=== PATIENT | female | born 1975 | race African-American/Black ===

== ENCOUNTER 2018-06-18 23:00 | Inpatient (IN) | payer MEDICAID ==
[~2018-06-18] VITALS: Ht 152.4 cm; Wt 112.5 kg
[~2018-06-18 23:00] MED LIST: FERR-71 MT; FURO-151 MT; HYDR25TA MT; LISI40TA4 MT
[2018-06-19] VITALS (15 sets, daily range): BP systolic 106–145; BP diastolic 67–97
[2018-06-19 00:41] LABS: CHLORIDE 106 mEq/L (98-107)
[2018-06-19 00:45] LABS: INR 1.1; PROTHROMBIN TIME 11.2 sec (9.1-11.1)
[2018-06-19 02:16] LABS: MEAN CORPUSCULAR HEMOGLOBIN 16.9 pg (28.0-32.0); MEAN CORPUSCULAR VOLUME 58.5 fL (81.0-99.0); MEAN PLATELET VOLUME 8.8 fl (7.4-10.4); PLATELET 213 x1000/uL (130-400); RED BLOOD CELL COUNT 2.72 mill/uL (4.2-5.4); RED CELL DISTRIBUTION WIDTH 20.2 % (11.6-14.6)
[2018-06-19 02:18] LABS: HEMATOCRIT. 15.9 % (36.0-48.0); HEMOGLOBIN. 4.6 g/dL (12.0-16.0)
[2018-06-19 05:29] LABS: PLATELET ESTIMATE NORMAL
[2018-06-19] MEDS ORDERED: DIPHENHYDRAMINE 50MG/ML VIAL IV PRN (08:45)
[2018-06-19] MEDS ORDERED: HYDROMORPHONE HCL/PF 2MG/ML CPJ IV PRN (08:45)
[2018-06-19] MEDS ORDERED: MAGNESIUM/ALUMINUM HYDROXIDE/SIMETHICONE 30ML UDC PO PRN (08:45)
[2018-06-19] MEDS ORDERED: ONDANSETRON HCL 4MG/2ML INJ IV PRN (08:45)
[2018-06-19] MEDS ORDERED: HYDRALAZINE 20MG/ML VIAL IV PRN (08:45)
[2018-06-19] MEDS ORDERED: LORAZEPAM 2MG/ML CPJ IV PRN (08:45)
[2018-06-19] MEDS ORDERED: DOCUSATE SODIUM 100MG CAPSULE PO PRN (08:45)
[2018-06-19] MEDS ORDERED: ACETAMINOPHEN 325MG TABLET PO PRN (08:45)
[2018-06-19] MEDS ORDERED: GUAIFENESIN 200MG/10ML SUGAR FREE UDC PO PRN (08:45)
[2018-06-19] MEDS ORDERED: IPRATROPIUM/ALBUTEROL 0.5-3(2.5)MG/3ML NEB INH PRN (08:45)
[2018-06-19] MEDS ORDERED: HYDROCODONE/ACETAMINOPHEN 10/325MG TABLET PO PRN (08:45)
[2018-06-19] MEDS ORDERED: CLONIDINE 0.1MG TABLET PO PRN (08:45)
[2018-06-19] MEDS ORDERED: TRAMADOL 50MG TABLET PO PRN (11:45)
[2018-06-19] MEDS ORDERED: FUROSEMIDE 40MG/4ML VIAL IVP NR (11:45)
[2018-06-19] MEDS: SODIUM CHLORIDE 0.9% INJ 3ML FLUSH IVF SCH ×2 (14:53→21:34)
[2018-06-19] MEDS: IPRATROPIUM/ALBUTEROL 0.5-3(2.5)MG/3ML NEB HHN SCH ×2 (15:58→21:13)
[2018-06-19 16:05] LABS: HEMATOCRIT. 21.7 % (36.0-48.0); MEAN CORPUSCULAR VOLUME 64.5 fL (81.0-99.0); MEAN PLATELET VOLUME 9.6 fl (7.4-10.4); PLATELET 206 x1000/uL (130-400); RED BLOOD CELL COUNT 3.37 mill/uL (4.2-5.4); RED CELL DISTRIBUTION WIDTH 25.1 % (11.6-14.6)
[2018-06-19 16:17] LABS: CREATINE KINASE 58 IU/L (26-192)
[2018-06-19 16:19] LABS: CREATINE KINASE MB FRACTION < 1.0 ng/mL (0.5-3.6); HEMOGLOBIN. 6.4 g/dL (12.0-16.0)
[2018-06-19 20:25] LABS: PLATELET ESTIMATE NORMAL
[2018-06-19] MEDS: BUDESONIDE 0.5MG/2ML NEB HHN SCH (21:14)
[2018-06-20] VITALS (12 sets, daily range): BP systolic 122–153; BP diastolic 53–90
[2018-06-20 00:34] LABS: CREATINE KINASE 56 IU/L (26-192)
[2018-06-20 00:35] LABS: CREATINE KINASE MB FRACTION < 1.0 ng/mL (0.5-3.6)
[2018-06-20] MEDS: IPRATROPIUM/ALBUTEROL 0.5-3(2.5)MG/3ML NEB HHN SCH ×2 (01:14→07:33)
[2018-06-20] MEDS: SODIUM CHLORIDE 0.9% INJ 3ML FLUSH IVF SCH (05:41)
[2018-06-20] MEDS: BUDESONIDE 0.5MG/2ML NEB HHN SCH (07:33)
[2018-06-20 08:33] LABS: HEMATOCRIT. 24.3 % (36.0-48.0); HEMOGLOBIN. 7.6 g/dL (12.0-16.0); MEAN CORPUSCULAR HEMOGLOBIN 20.2 pg (28.0-32.0); MEAN PLATELET VOLUME 9.5 fl (7.4-10.4); PLATELET 192 x1000/uL (130-400); RED BLOOD CELL COUNT 3.74 mill/uL (4.2-5.4); RED CELL DISTRIBUTION WIDTH 25.6 % (11.6-14.6)
[2018-06-20 08:36] LABS: CHLORIDE 107 mEq/L (98-107)
[2018-06-20 08:46] LABS: LDL CHOLESTEROL 69 mg/dL (5-100)
[2018-06-20 08:47] LABS: HDL CHOLESTEROL 53 mg/dL (40-59); T4 FREE 1.01 ng/dL (0.76-1.46)
[2018-06-20] MEDS ORDERED: FUROSEMIDE 40MG TABLET PO SCH (09:00)
[2018-06-21 10:50] LABS: PLATELET ESTIMATE NORMAL
== END 2018-06-20 17:00 | disposition home or self-care (01) | DRG 532 ==
LOC: ER 23:00 → 5EST 06-19 02:22 → EDBEDREQTM 06-19 02:25 → EDBEDREQ 06-19 02:25 → EDBEDREQSVC 06-19 02:25 → ENRESERV 06-19 07:27
PROVIDERS: ADMIT Internal Medicine; ATTEND Internal Medicine
PROC: 30233N1 Transfusion of Nonautologous Red Blood Cells into Peripheral Vein, Percutaneous Approach (ICD-10-PCS; principal; 2018-06-19)
DX: D25.9 Leiomyoma of uterus, unspecified (principal); J96.00 Acute respiratory failure, unspecified whether with hypoxia or hypercapnia; I11.0 Hypertensive heart disease with heart failure; I50.9 Heart failure, unspecified; D50.0 Iron deficiency anemia secondary to blood loss (chronic); E66.9 Obesity, unspecified; F41.9 Anxiety disorder, unspecified; G47.33 Obstructive sleep apnea (adult) (pediatric); I34.0 Nonrheumatic mitral (valve) insufficiency; N92.1 Excessive and frequent menstruation with irregular cycle; J44.9 Chronic obstructive pulmonary disease, unspecified; Z77.22 Contact with and (suspected) exposure to environmental tobacco smoke (acute) (chronic); M06.9 Rheumatoid arthritis, unspecified; Z99.81 Dependence on supplemental oxygen; Z68.42 Body mass index [BMI] 45.0-49.9, adult; Z91.018 Allergy to other foods
CPT/HCPCS: 36415; 36430; 71045; 80061; 82550; 82553; 83880; 84439; 84443; 84484; 86850; 86900; 86920; 93005; 93306; 93970; 94640; 96374; 96375; 99291; J1940; J7050; J7620; J7626; P9016

== ENCOUNTER 2019-03-10 19:57 | Inpatient (IN) | payer MEDICAID ==
[~2019-03-10] VITALS: Ht 165.1 cm; Wt 102.1 kg
[2019-03-10] MEDS ORDERED: ONDANSETRON HCL 4MG/2ML INJ IV STA (21:26)
[2019-03-10] MEDS ORDERED: MAGNESIUM/ALUMINUM HYDROXIDE/SIMETHICONE 30ML UDC PO ONE (21:30)
[2019-03-10] MEDS ORDERED: VISCOUS LIDOCAINE 2% 15 ML UDC PO ONE (21:30)
[2019-03-10 21:47] LABS: MEAN CORPUSCULAR HEMOGLOBIN 16.3 pg (28.0-32.0); MEAN CORPUSCULAR VOLUME 56.5 fL (81.0-99.0); MEAN PLATELET VOLUME 9.2 fl (7.4-10.4); PLATELET 276 x1000/uL (130-400); RED BLOOD CELL COUNT 2.18 mill/uL (4.2-5.4); RED CELL DISTRIBUTION WIDTH 22.4 % (11.6-14.6)
[2019-03-10 21:50] LABS: CHLORIDE 106 mEq/L (98-107)
[2019-03-10 21:55] LABS: HEMATOCRIT. 12.3 % (36.0-48.0); HEMOGLOBIN. 3.5 g/dL (12.0-16.0)
[2019-03-10 22:20] LABS: PLATELET ESTIMATE NORMAL
[2019-03-10] MEDS ORDERED: HYDROCODONE/ACETAMINOPHEN 5/325MG TABLET PO PRN (23:30)
[2019-03-10] MEDS ORDERED: CLONIDINE 0.1MG TABLET PO PRN (23:30)
[2019-03-10] MEDS ORDERED: ONDANSETRON HCL 4MG/2ML INJ IV PRN (23:30)
[2019-03-10] MEDS ORDERED: MAGNESIUM/ALUMINUM HYDROXIDE/SIMETHICONE 30ML UDC PO PRN (23:30)
[2019-03-10] MEDS ORDERED: IPRATROPIUM/ALBUTEROL 0.5-3(2.5)MG/3ML NEB NEB PRN (23:30)
[2019-03-10] MEDS ORDERED: DOCUSATE SODIUM 100MG CAPSULE PO PRN (23:30)
[2019-03-11] VITALS (14 sets, daily range): BP systolic 116–139; BP diastolic 70–92
[2019-03-11] MEDS: ACETAMINOPHEN 325MG TABLET PO PRN (05:05)
[2019-03-11 05:16] LABS: BASOPHILS % 1.3 % (0.0-2.0); EOSINOPHILS % 1.3 % (0.0-5.0); LYMPHOCYTES % 22.7 % (20.0-50.0); MEAN CORPUSCULAR HEMOGLOBIN 20.1 pg (28.0-32.0); MEAN CORPUSCULAR VOLUME 65.5 fL (81.0-99.0); MEAN PLATELET VOLUME 8.9 fl (7.4-10.4); NEUTROPHILS % 68.7 % (40.0-76.0); PLATELET 277 x1000/uL (130-400); RED BLOOD CELL COUNT 2.96 mill/uL (4.2-5.4); RED CELL DISTRIBUTION WIDTH 33.2 % (11.6-14.6)
[2019-03-11 05:22] LABS: CHLORIDE 107 mEq/L (98-107)
[2019-03-11 05:26] LABS: HEMATOCRIT. 19.4 % (36.0-48.0)
[2019-03-11 05:29] LABS: LDL CHOLESTEROL 66 mg/dL (5-100)
[2019-03-11 05:30] LABS: CREATINE KINASE 49 IU/L (26-192); HDL CHOLESTEROL 44 mg/dL (40-59)
[2019-03-11 05:33] LABS: CREATINE KINASE MB FRACTION < 1.0 ng/mL (0.5-3.6)
[2019-03-11] MEDS: FERROUS SULFATE 325MG TABLET PO SCH ×3 (09:00→17:00)
[2019-03-11 16:13] LABS: CREATINE KINASE MB FRACTION < 1.0 ng/mL (0.5-3.6)
[2019-03-11 16:19] LABS: CREATINE KINASE 38 IU/L (26-192)
[2019-03-11] MEDS ORDERED: IPRATROPIUM/ALBUTEROL 0.5-3(2.5)MG/3ML NEB HHN PRN (16:45)
[2019-03-12] VITALS (19 sets, daily range): BP systolic 121–155; BP diastolic 58–102
[2019-03-12] MEDS ORDERED: FUROSEMIDE 40MG TABLET PO SCH (09:00)
[2019-03-12] MEDS ORDERED: INFLUENZA VIRUS VACCINE(AFLURIA) 0.5ML SYR IM ONE (09:00)
[2019-03-12] MEDS: FERROUS SULFATE 325MG TABLET PO SCH ×3 (09:00→17:00)
[2019-03-12 10:02] LABS: CHLORIDE 107 mEq/L (98-107)
[2019-03-12 10:07] LABS: BASOPHILS % 1.6 % (0.0-2.0); EOSINOPHILS % 2.8 % (0.0-5.0); HEMATOCRIT. 22.1 % (36.0-48.0); LYMPHOCYTES % 7.3 % (20.0-50.0); MEAN CORPUSCULAR HEMOGLOBIN 21.8 pg (28.0-32.0); MEAN CORPUSCULAR VOLUME 69.5 fL (81.0-99.0); MEAN PLATELET VOLUME 9.1 fl (7.4-10.4); MONOCYTES % 5.5 % (2.0-8.0); NEUTROPHILS % 82.8 % (40.0-76.0); PLATELET 206 x1000/uL (130-400); RED BLOOD CELL COUNT 3.17 mill/uL (4.2-5.4); RED CELL DISTRIBUTION WIDTH 33.3 % (11.6-14.6)
[2019-03-12 10:12] LABS: HEMOGLOBIN. 6.9 g/dL (12.0-16.0)
[2019-03-12 20:22] LABS: HEMATOCRIT. 27.6 % (36.0-48.0); HEMOGLOBIN. 8.7 g/dL (12.0-16.0); LYMPHOCYTES % 12.2 % (20.0-50.0); MEAN CORPUSCULAR HEMOGLOBIN 22.6 pg (28.0-32.0); MEAN CORPUSCULAR VOLUME 71.8 fL (81.0-99.0); MEAN PLATELET VOLUME 9.4 fl (7.4-10.4); MONOCYTES % 4.5 % (2.0-8.0); NEUTROPHILS % 79.3 % (40.0-76.0); PLATELET 243 x1000/uL (130-400); RED BLOOD CELL COUNT 3.84 mill/uL (4.2-5.4); RED CELL DISTRIBUTION WIDTH 33.3 % (11.6-14.6)
[2019-03-12] MEDS: ACETAMINOPHEN 325MG TABLET PO PRN (20:38)
== END 2019-03-12 21:17 | disposition home or self-care (01) | DRG 532 ==
LOC: ER 19:57 → 5EST 21:59 → EDBEDREQ 22:02 → EDBEDREQTM 22:02 → EDBEDREQSVC 22:02 → ENRESERV 03-11 11:11 → 5EST 03-11 14:36
PROVIDERS: ADMIT Internal Medicine; ATTEND Internal Medicine
PROC: 30233N1 Transfusion of Nonautologous Red Blood Cells into Peripheral Vein, Percutaneous Approach (ICD-10-PCS; principal; 2019-03-10)
DX: D25.9 Leiomyoma of uterus, unspecified (principal); I11.0 Hypertensive heart disease with heart failure; I50.9 Heart failure, unspecified; D50.0 Iron deficiency anemia secondary to blood loss (chronic); N92.0 Excessive and frequent menstruation with regular cycle; J44.9 Chronic obstructive pulmonary disease, unspecified; G47.30 Sleep apnea, unspecified; M19.90 Unspecified osteoarthritis, unspecified site; M25.531 Pain in right wrist; W18.39XA Other fall on same level, initial encounter; Y93.89 Activity, other specified; Y92.098 Other place in other non-institutional residence as the place of occurrence of the external cause; Z79.899 Other long term (current) drug therapy; Y99.8 Other external cause status; Z91.018 Allergy to other foods
CPT/HCPCS: 36415; 71045; 73110; 80048; 80061; 82550; 82553; 83735; 83880; 84443; 84484; 86850; 86900; 86920; 93005; 93970; 96374; 99291; J2405; J7040; P9016; P9021